=== PATIENT | male | born 1980 | race Caucasian/White ===

== ENCOUNTER 2016-08-22 04:48 | Emergency (ER) | payer SELFPAY | END 2016-08-22 06:00 | disposition home or self-care (01) | LOC: FER 04:48 | DX: J45.901 Unspecified asthma with (acute) exacerbation (principal); F17.200 Nicotine dependence, unspecified, uncomplicated; Z88.0 Allergy status to penicillin; Z79.51 Long term (current) use of inhaled steroids | CPT/HCPCS: 71020; 94640; 94664; J2930 ==

== ENCOUNTER 2020-08-18 18:09 | Emergency (ER) | payer OTHER ==
[~2020-08-18 18:09] MED LIST: KEFLEX500 MG PO; PREDNISONE 20MG20 MG PO; PREDNISONE20 MG PO; VENTOLIN HFA IN18 GM INH
[2020-08-18 19:49] LABS: BASOPHIL 0.9 % (0-2); EOSINOPHIL 2.7 % (0-5); HCT 45.3 % (42.0-52.0); HGB 15.2 g/dl (13.2-18.0); LYMPHOCYTE 27.5 % (15-48); MCH 31.7 pg (25.0-31.0); MCHC 33.6 g/dL (32.0-36.0); MCV 94.6 fL (78.0-100.0); MONOCYTE 9.2 % (0-12); MPV 10.2 fL (6.0-9.5); NEUTROPHIL 59.4 % (41-80); NRBC 0; PLT 241 K/uL (150-400); RBC 4.79 M/uL (4.70-6.00); RDW 12.4 % (11.5-14.0)
[2020-08-18 20:16] LABS: BUN/CREAT RATIO (CALC) 14.8 RATIO; CREATININE 0.81 mg/dL (0.67-1.17)
[2020-08-18 20:24] LABS: PRO-BNP 32 pg/mL (<125)
== END 2020-08-18 22:05 | disposition home or self-care (01) ==
LOC: FER 18:09
PROVIDERS: Student in an Organized Health Care Education/Training Program
DX: R07.9 Chest pain, unspecified (principal); J45.909 Unspecified asthma, uncomplicated; Z88.0 Allergy status to penicillin; Z88.5 Allergy status to narcotic agent
CPT/HCPCS: 36415; 71045; 80048; 83880; 84484; 85025